=== PATIENT | male | born 1985 | race Caucasian/White ===

== ENCOUNTER 2024-10-26 22:42 | Emergency (ER) | payer BC, SELFPAY ==
[2024-10-26 22:46] VITALS: BP 137/85
[2024-10-27 00:17] VITALS: BP 133/83
--- NOTE | 2024-10-27 00:37 | ED.GENMED ---
History of Present Illness
<Andrea Byrd MD, Resident - Last Filed: 10/27/24 06:21>
General
Chief Complaint: Psychiatric Problem
Source: patient and other (Friend)
Exam Limitations: none
Time Seen by Provider: 10/27/24 00:25
Nursing documentation reviewed up to this point in time: agreed with
History of Present Illness
History of Present Illness:
This is a 39-year-old male presenting in the emergency department with his friend with concerns of difficulty sleeping. He informed me that he was on a mood stabilizer-Lamictal and was seeing a psychiatrist however he discontinued the medication 2
weeks ago cold turkey. He was also using THC vape which he was buying from the street; quit 3 days ago.
He stated that he is dealing with a lot of personal issues including multiple people in the family recently and couple of family members have cancer. He states that he does not have any auditory or visual hallucinations. Denies suicidal or
homicidal ideation however specifically states that ' I feel like I am ready to lose everything'.
Denies any other medications, medical history, surgeries.
Lives with family at home.
The friend who brought him to the emergency department informed me that Liam went missing today for 5 hours when he took his car and drove away without letting anyone know regarding his whereabouts.
Past History
<Andrea Byrd MD, Resident - Last Filed: 10/27/24 06:21>
Past History
ED Past Medical History: Psychiatric
ED Past Surgical History: None
Patient has exhibited threatening behavior?: No
Social History
Tobacco: Vaping
Drug: Marijuana
Personal:
Living: with family
Family History
Family History: Cancer
Review of Systems
<Andrea Byrd MD, Resident - Last Filed: 10/27/24 06:21>
Review of Systems
Constitutional: Reports sleep disturbance
EENT: Reports no symptoms
Respiratory: Reports no symptoms
Cardiac: Reports palpitations
ABD/GI: Reports no symptoms
: Reports no symptoms
Musculoskeletal: Reports no symptoms
Skin: Reports no symptoms
Neurological: Reports no symptoms
Endocrine: Reports no symptoms
Hematologic/Lymphatic: Reports no symptoms
Psychiatric: Reports anxiety
Phy Exam
<Andrea Byrd MD, Resident - Last Filed: 10/27/24 06:21>
Physical Exam
Physical Exam:
.
General Physical Exam
General age: appears stated age
General Skin: warm
General Habitus: normal
General Mental: alert
Eye Exam
Eye Exam: PERRL, EOMI and conjunctiva normal
Cardiovascular Exam
Cardiovascular Exam: regular rate/rhythm and no murmur
Pulmonary Exam
Pulmonary Exam: lungs clear and no respiratory distress
Neurological Exam
Neurological Exam: alert, oriented x3, no motor deficits and no sensory deficits
Psychiatric Exam
Psychiatric Exam: labile
Course
<Andrea Byrd MD, Resident - Last Filed: 10/27/24 06:21>
Orders/Labs/Results
Orders:
Orders
10/27/24 00:24
Crisis Consult Urgent
Reason for Consult: evaluation
10/27/24 01:20
ED Special Safety Observation ONCE
Observation level: Intermittent Observation
10/27/24 01:21
Ibuprofen [Motrin] 800 mg PO NOW STA
10/27/24 01:31
Acetaminophen Urgent
Alcohol Urgent
Complete Blood Count/With Diff Urgent
Comprehensive Metabolic Panel Urgent
Salicylate Urgent
10/27/24 02:37
Nicotine [Nicoderm Transdermal] 14 mg .ROUTE .STK-MED ONE
10/27/24 03:39
Drug Screen, Urine [Urine Drug Abuse Screen] Urgent
Date Specimen was Collected: 10/27/24
Time Specimen was Collected: 03:37
10/27/24 08:00
Nicotine [Nicoderm Transdermal] 14 mg TRANSDERM DAILY
Nicotine [Nicoderm Transdermal] 14 mg TRANSDERM DAILY
Abnormal Lab Results
10/27/24 10/27/24
01:31 03:39
RBC 4.23 L 10^6/uL
(4.70-6.10)
Hct 37.6 L %
(39.0-52.0)
MCH 31.4 H pg
(27.0-31.0)
Absolute Neuts (auto) 7.8 H 10^3/uL
(1.4-6.5)
Absolute Monos (auto) 0.7 H 10^3/uL
(0.1-0.6)
Neutrophils % 76.8 H %
(42.2-75.2)
Lymphocytes % 14.8 L %
(20.5-51.1)
Chloride 108 H mmol/L
(98-107)
Glucose 120 H mg/dl
(70-99)
Salicylates < 1.0 L mg/dl
(2.0-20.0)
Acetaminophen < 10 L ug/ml
(10-30)
U Marijuana (THC) Screen Positive H
(Negative)
10/27/24 01:31
10/27/24 01:31
Vital Signs
Initial and Last Documented VS:
Initial Vital Signs
Temp Pulse Resp BP Pulse Ox
36.8 C 92 20 137/85 98
10/26/24 22:46 10/26/24 22:46 10/26/24 22:46 10/26/24 22:46 10/26/24 22:46
Last Documented Vital Signs
Temp Pulse Resp BP Pulse Ox
36.8 C 78 25 133/83 99
10/26/24 22:46 10/27/24 00:45 10/27/24 00:45 10/27/24 00:17 10/27/24 00:45
<Goyo Devine MD - Last Filed: 10/27/24 08:37>
Orders/Labs/Results
Orders:
Orders
10/27/24 00:24
Crisis Consult Urgent
Reason for Consult: evaluation
10/27/24 01:20
ED Special Safety Observation ONCE
Observation level: Intermittent Observation
10/27/24 01:21
Ibuprofen [Motrin] 800 mg PO NOW STA
10/27/24 01:31
Acetaminophen Urgent
Alcohol Urgent
Complete Blood Count/With Diff Urgent
Comprehensive Metabolic Panel Urgent
Salicylate Urgent
10/27/24 02:37
Nicotine [Nicoderm Transdermal] 14 mg .ROUTE .STK-MED ONE
10/27/24 03:39
Drug Screen, Urine [Urine Drug Abuse Screen] Urgent
Date Specimen was Collected: 10/27/24
Time Specimen was Collected: 03:37
10/27/24 08:00
Nicotine [Nicoderm Transdermal] 14 mg TRANSDERM DAILY
Nicotine [Nicoderm Transdermal] 14 mg TRANSDERM DAILY
Abnormal Lab Results
10/27/24 10/27/24
01:31 03:39
RBC 4.23 L 10^6/uL
(4.70-6.10)
Hct 37.6 L %
(39.0-52.0)
MCH 31.4 H pg
(27.0-31.0)
Absolute Neuts (auto) 7.8 H 10^3/uL
(1.4-6.5)
Absolute Monos (auto) 0.7 H 10^3/uL
(0.1-0.6)
Neutrophils % 76.8 H %
(42.2-75.2)
Lymphocytes % 14.8 L %
(20.5-51.1)
Chloride 108 H mmol/L
(98-107)
Glucose 120 H mg/dl
(70-99)
Salicylates < 1.0 L mg/dl
(2.0-20.0)
Acetaminophen < 10 L ug/ml
(10-30)
U Marijuana (THC) Screen Positive H
(Negative)
10/27/24 01:31
10/27/24 01:31
Vital Signs
Initial and Last Documented VS:
Initial Vital Signs
Temp Pulse Resp BP Pulse Ox
36.8 C 92 20 137/85 98
10/26/24 22:46 10/26/24 22:46 10/26/24 22:46 10/26/24 22:46 10/26/24 22:46
Last Documented Vital Signs
Temp Pulse Resp BP Pulse Ox
36.8 C 78 25 133/83 99
10/26/24 22:46 10/27/24 00:45 10/27/24 00:45 10/27/24 00:17 10/27/24 00:45
<Andrea Byrd MD, Resident - Last Filed: 10/27/24 06:21>
MDM/Problems Addressed
Differential Diagnosis Includes:
Faviola with underlying mood disorder with anxiety vs Drug toxicity
MDM/Problems Addressed:
Crises consulted
will check cbc, cmp, acetaminophen and salicylate level, etoh level, UDS
Nicotine patch given his use of multiple vapes for many years.
Patient elected to stay Voluntarily per crisis with backup [id number]
<Andrea Byrd MD, Resident - Last Filed: 10/27/24 06:21>
*Pulse Oximetry
SaO2: 99
Oxygen Mode of Delivery: Room air
Patient hypoxic: no
*Critical Care Note
Total Time (30-74mins, 75-104mins- exclusive of procedures): Not Applicable
ED Attending Note
<Andrea Byrd MD, Resident - Last Filed: 10/27/24 06:21>
-
Portions of this chart may have been created with voice recognition software.� Occasional wrong word or��sound alike� substitutions may have occurred due to the inherent limitations of voice recognition software.
<Goyo Devine MD - Last Filed: 10/27/24 08:37>
ED Attending Note
Patient seen and examined by attending physician: Yes
I performed a history and physical exam of patient and discussed management with resident, I reviewed resident's note and agree with documented findings and plan of care.: Yes
ED Attending Note:
I have seen and evaluated the patient with a [id number] encounter. I have spoken to the resident and involved in the medical history, the physical exam, medical decision making.
Evaluation and management service: agree unless noted differently below.
Results interpretation: agree unless noted differently below.
Focused HPI: 39-year-old male presents to the emergency department with his [id number] for evaluation of 'faviola' and some suicidal thoughts. Patient reports that he has had a very difficult year, family members been sick and he has been
struggling in his marriage. He has a history of bipolar disorder and had been on Lamictal but has been noncompliant with this medicine. He had been using marijuana regularly but recently discontinued marijuana use due to mental health struggles.
Patient says he has not been sleeping. He says he has been having hallucinations�specifically cites a 15-minute hallucination when he saw a family member and had a full conversation with him. Although he denied to the nurse he says he had had
some thoughts of suicide but does not cite a specific plan. Family says that today he drove off in the car and was missing for a few hours. With escalated behavior he was brought to the ER for treatment.
Physical exam: Awake and alert, tearful. Vital signs all within acceptable range. Breathing comfortably no distress. No signs of trauma. Depressed mood, tearful affect.
Medical Decision Makin-year-old male presents with mental health concerns as described above. Screening labs sent off and unremarkable. Case discussed with crisis�patient is voluntary for inpatient psychiatric placement with backup [id number].
Discharge Plan
Departure
Patient Disposition: Psych Facility
Date of Disposition: 10/27/24
Time of Disposition: 01:21
Discharge Problem:
Faviola, Suicidal ideation
Referrals:
Antonette Baron MD [Family Provider, Family Practice]
Interventions
Interventions:
*Risk Screen - Suicide Last Done: 10/27/24 00:47
*General Assessment Last Done: 10/26/24 22:46
*Neglect/Abuse Screening Last Done: 10/27/24 00:29
*ED- Fall Risk Assessment Last Done: 10/27/24 00:29
*ED COVID-19 Vaccine History Last Done: 10/27/24 00:29
ED-Psychological Assessment Last Done: 10/27/24 00:30
Discharge Date and Time
Print Language: GREENLANDIC
[2024-10-27] MEDS: MOTRIN 800 MG PO (01:34)
[2024-10-27 01:40] LABS: Hematocrit 37.6 % (39.0-52.0); Hemoglobin 13.3 g/dL (13.0-18.0); Mean Corp Hgb Conc. 35.4 g/dL (33.0-37.0); Mean Corpuscular Volume 88.9 fL (80.0-94.0); Nucleated Red Blood Cells % 0 % (-); Platelet Count 257 10^3/uL (130-400); Red Cell Dist. Width 12.4 % (11.5-14.5)
[2024-10-27 02:00] LABS: ALT (SGPT) 22 U/L (0-50); AST (SGOT) 29 U/L (17-59); Acetaminophen < 10 ug/ml (10-30); Albumin 4.5 g/dl (3.5-5.0); Alkaline Phosphatase 61 U/L (38-126); Blood Urea Nitrogen 11 mg/dl (9-20); Calcium 10.0 mg/dl (8.4-10.2); Carbon Dioxide 26 mmol/L (22-30); Chloride 108 mmol/L (98-107); Glucose 120 mg/dl (70-99); Potassium 3.5 mmol/L (3.5-5.1); Salicylate < 1.0 mg/dl (2.0-20.0); Sodium 140 mmol/L (135-145); Total Protein 6.6 g/dl (6.3-8.2); eGFR > 60.00
[2024-10-27] MEDS: NICODERM TRANSDERMAL 14 MG TRANSDERM (02:45)
== END 2024-10-27 08:00 ==
LOC: EMR 22:42
PROVIDERS: EMERGENCY PHYSICIAN Emergency Medicine; FAMILY PHYSICIAN Family Medicine
DX: R45.851 Suicidal ideations (principal); F30.9 Manic episode, unspecified
CPT/HCPCS: 99285; 80053; 80143; 80179; 80306; 82077; 85025